=== PATIENT | female | born 1950 | race Caucasian/White ===

== ENCOUNTER 2016-03-10 07:12 | Inpatient (IN) | payer OTHER, MEDICAID ==
[2016-03-10] VITALS (26 sets, daily range): BP systolic 88–142; BP diastolic 48–96; PULSE 70–124; RESP 12–22; TEMP 97–98.2; O2SAT 94–100
[~2016-03-10] VITALS: Ht 162.6 cm; Wt 59.0 kg
[~2016-03-10 07:12] MED LIST: CAPT25TA3 PO; DEXT1CAP3 PO; LEVO88TA5 PO; PLE5 PO; TIZA4TAB11 PO; TRAM50TA92 PO; [UNRECOGNIZED DRUG - CODE] PO
--- NOTE | 2016-03-10 07:12 | NUR ---
Patient to ER bed 2 to gown for evaluation. Side rails up. Report given to TREVER SINGH.
--- NOTE | 2016-03-10 07:12 | NUR ---
Placed in room 1 . Placed on cardiac rehab nurse, blood pressure machine and pulse oximeter. To gown for exam. Side rails up.
--- NOTE | 2016-03-10 07:15 | NUR ---
ER at bedside examining patient.
[2016-03-10] MEDS ORDERED: NACL 0.9% 1,000 ML IV ONE ×3 (07:18→08:45)
--- NOTE | 2016-03-10 07:22 | NUR ---
ER at bedside examining patient.
--- NOTE | 2016-03-10 07:43 | NUR ---
# 20 gauge angiocath placed to LEFT HAND. Use of asceptic technique. Opsite placed over site. Blood return noted. Blood for lab drawn from site. Flushed with 10 cc of normal saline. No evidence of infiltration noted. Patient tolerated well.
--- NOTE | 2016-03-10 07:44 | NUR ---
# 16 FR Shen catheter with use of sterile technique. Immediate return of cc urine noted. Bedside drainage bag placed below level of bladder. Urine sample collected and sent to lab. Pt tolerated procedure . Patient arrived with shen in place, changed due to standard of practice prior to admission. Patient unable to toilet self.
[2016-03-10] MEDS ORDERED: LEVOFLOXACIN 500 MG/D5W 100 ML IV ONE (07:45)
[2016-03-10 08:36] LABS: BASOPHILS % (AUTO) 0.1 % (0.0-2.0); EOSINOPHILS % (AUTO) 0.2 % (0.0-4.0); HEMATOCRIT 29.5 % (36-48); HEMOGLOBIN 9.9 g/dL (12.0-16.0); LYMPHOCYTES # (AUTO) 0.4 K/uL (1.0-5.5); LYMPHOCYTES % (AUTO) 2.8 % (20.5-51.5); MEAN CORPUSCULAR HEMOGLOBIN 30 pg (27-31); MEAN CORPUSCULAR HGB CONC 33 % (32-36); MEAN CORPUSCULAR VOLUME 91 fL (79.0-98.0); MONOCYTES # (AUTO) 0.5 K/uL (0.0-1.0); MONOCYTES % (AUTO) 3.9 % (1.7-9.3); PLATELET COUNT (AUTO) 357 K/uL (130-430); RED BLOOD CELL COUNT(AUTO) 3.24 MIL/uL (4.2-6.2); RED CELL DISTRIBUTION WIDTH 13.8 % (9.0-15.0); WHITE BLOOD COUNT (AUTO) 13.9 K/uL (4.8-10.8)
[2016-03-10 08:39] LABS: CREATININE 0.58 mg/dL (0.55-1.30); POTASSIUM 3.8 mmol/L (3.5-5.1)
[2016-03-10 08:44] LABS: ALBUMIN 2.6 g/dL (3.4-4.8); TOTAL BILIRUBIN 0.2 mg/dL (0.0-1.0); TOTAL PROTEIN, SERUM 6.5 g/dL (6.4-8.3)
[2016-03-10] MEDS ORDERED: LIPA1CAP23 PO (08:45)
[2016-03-10] MEDS ORDERED: DIPH25TA62 GT (08:45)
[2016-03-10] MEDS ORDERED: ESOM40CA PO (08:45)
[2016-03-10] MEDS ORDERED: FERR220S3 PO (08:45)
[2016-03-10] MEDS ORDERED: TRAM100T13 PO (08:45)
[2016-03-10] MEDS ORDERED: PREG75CA PO (08:45)
[2016-03-10] MEDS ORDERED: POTA20LI25 PO (08:45)
[2016-03-10] MEDS ORDERED: LEVO175T7 PO (08:45)
[2016-03-10] MEDS ORDERED: RILU50TA8 PO (08:45)
[2016-03-10] MEDS ORDERED: LACT1CAP7 PO (08:45)
[2016-03-10] MEDS ORDERED: CYCL-10 PO (08:45)
[2016-03-10] MEDS ORDERED: SIME125C81 PO (08:45)
[2016-03-10] MEDS ORDERED: ALBU2.5V7 INH (08:45)
[2016-03-10] MEDS ORDERED: METO-290 PO (08:45)
[2016-03-10] MEDS ORDERED: BUDE0.253 NEB (08:45)
--- NOTE | 2016-03-10 09:10 | NUR ---
medication reconcil completed.
--- NOTE | 2016-03-10 09:11 | NUR ---
admit order received from Dr Saba
--- NOTE | 2016-03-10 09:11 | NUR ---
MRSA of nares sent to lab
--- NOTE | 2016-03-10 09:12 | NUR ---
Patient will be admitted to care of Jayant. Admitted to unit. Will go to room . Belongings list completed. Summary report printed. Report given to .
--- NOTE | 2016-03-10 09:23 | NUR ---
ADMISSION NOTE Received patient from ER via mani, received report from TREVER SINGH. Patient admitted with diagnosis of SEPSIS. oriented to hospital routine, call light, toileting and safety. verbalized understanding. PT IS NONVERBAL
[2016-03-10 10:12] LABS: BILIRUBIN,URINE NEGATIVE (NEGATIVE); CLARITY/URINE CLOUDY (CLEAR); COLOR,URINE YELLOW (YELLOW); GLUCOSE,URINE NEGATIVE (NEGATIVE); KETONES,URINE NEGATIVE (NEGATIVE); LEUKOCYTE ESTERASE ,URINE 3+ (NEGATIVE); NITRITE, URINE NEGATIVE (NEGATIVE); PROTEIN URINE 1+ (NEGATIVE); UROBILINOGEN,URINE 0.2 (0.2-1.0)
[2016-03-10 10:18] LABS: BLOOD, URINE TRACE (NEGATIVE)
--- NOTE | 2016-03-10 10:25 | NUR ---
LAB VEHICLE LEASING AND RENTAL MANAGER HERE TO DRAW 2ND LACTIC ACID PER SEPSIS PROTOCOL
[2016-03-10 10:46] LABS: BACTERIA,URINE MODERATE /HPF (None Seen); WBC,URINE 50-80 /HPF (0-3)
[2016-03-10 10:47] LABS: TRIPLE PHOSPHATE CRYSTAL,UR 0-10 /HPF (None Seen)
[2016-03-10] MEDS ORDERED: IPRATROPIUM BROM 0.5 MG/2.5 ML VIAL.NEB (ATROVENT) INH PRN (11:15)
[2016-03-10] MEDS ORDERED: ALBUTEROL SULFATE 0.083% 2.5 MG/3 ML VIAL.NEB INH PRN (11:15)
--- NOTE | 2016-03-10 11:25 | NUR ---
HERE RENARD HARTMANN, HERE TO SEE PT. SPOKE WITH . NEW ORDERS NOTED
[2016-03-10] MEDS ORDERED: ONDANSETRON HCL 4 MG/2 ML VIAL IVP PRN (12:00)
[2016-03-10] MEDS ORDERED: ACETAMINOPHEN 325 MG TABLET PO PRN (12:00)
[2016-03-10] MEDS ORDERED: MORPHINE 2 MG/ML INJ. SYRINGE IVP PRN (12:00)
[2016-03-10] MEDS ORDERED: MORPHINE 4 MG/ML INJ. SYRINGE IVP PRN (12:00)
--- NOTE | 2016-03-10 12:00 | NUR ---
HERE DR BARTON, PCP, HERE TO SEE PT. SPOKE WITH . NEW ORDERS NOTED
[2016-03-10 12:01] LABS: ABG TOTAL HEMOGLOBIN 10.7 G/dL (12.0-18.0); BLOOD GAS BASE EXCESS -0.4 mmol/L (-3.0-3.0); BLOOD GAS COHb% 1.2 % (0.5-1.5); BLOOD GAS HHB 2.4 % (0.0-6.0); BLOOD GAS PH 7.413 (7.350-7.450); BLOOD O2Hb% 96.1 % (94.0-97.0)
--- NOTE | 2016-03-10 12:30 | NUR ---
CALLED IN CONSULT TO DR. LADD AND DR. GALLEGOS IS LOG PREPARER... SPOKE TO EXCHANGE...
--- NOTE | 2016-03-10 12:32 | NUR ---
CALLED IN CONSULT TO DR. GRAMAJO AND LEFT VOICEMAIL...
[2016-03-10] MEDS ORDERED: METOCLOPRAMIDE HCL 10 MG TABLET PO ONE (13:15)
[2016-03-10] MEDS: D5NS 1,000 ML IV SCH (14:07)
[2016-03-10] MEDS: IPRATROPIUM BROM 0.5 MG/2.5 ML VIAL.NEB (ATROVENT) INH SCH ×3 (15:00→23:52)
[2016-03-10] MEDS: ALBUTEROL SULFATE 0.083% 2.5 MG/3 ML VIAL.NEB INH SCH ×3 (15:00→23:52)
[2016-03-10] MEDS: metroNIDAZOLE 500 mg/NS 100 ML IV SCH ×2 (15:07→21:09)
[2016-03-10] MEDS ORDERED: ACETAMINOPHEN 325 MG TABLET GT PRN (15:45)
[2016-03-10] MEDS: traMADol HCL HCL 50 MG TABLET (ULTRAM) GT PRN (16:23)
[2016-03-10] MEDS ORDERED: CYCLOBENZAPRINE HCL 10 MG TABLET (FLEXERIL) ONE (16:26)
--- NOTE | 2016-03-10 16:45 | NUR ---
RILUZOLE RILUZOLE IS NON FORMULARY PER KATHYA QUINTERO. MADE AWARE. HE WILL GO HOME TO SEE IF HE HAS ANY AT HOME. [facility] WILL NOT RELEASE
[2016-03-10] MEDS: METOCLOPRAMIDE HCL 10 MG TABLET PO SCH (17:42)
--- NOTE | 2016-03-10 18:46 | NUR ---
CLOSING NOTE PT RESTING IN BED. ALL NEEDS MET. HOURLY AND PRN ROUNDS OBSERVED. WILL ENDORSE REPORT TO NOC SHIFT NURSE
--- NOTE | 2016-03-10 20:00 | NUR ---
PM ASSESSMENT Pt alert and oriented, non-verbal, follows commands with eye movements (blinks for yes or no). Admitted earlier this morning from [facility] with admitting diagnosis of sepsis. Neurogenic bladder and quadraplegic d/t ALS. Bocanegra intact draining yellow urine, replaced in ER upon admission. On vent settings of CPAP 12/5 fio2 32% with Portex size 7. Pt has peripheral iv on right hand gauge 22 on D5NS @100 ml/hr. Air mattress in place, side rails up. Will continue monitor.
[2016-03-10] MEDS: LACTOBACILLUS RHAMNOSUS GG 1 CAP CAPSULE GT SCH (20:53)
[2016-03-10] MEDS: PREGABALIN 75 MG CAPSULE (LYRICA) GT SCH (20:53)
[2016-03-10] MEDS: CYCLOBENZAPRINE HCL 10 MG TABLET (FLEXERIL) GT SCH (20:53)
[2016-03-10] MEDS ORDERED: PREGABALIN 75 MG CAPSULE (LYRICA) PO SCH (21:00)
[2016-03-10] MEDS ORDERED: LACTOBACILLUS RHAMNOSUS GG 1 CAP CAPSULE PO SCH (21:00)
[2016-03-10] MEDS ORDERED: RILUZOLE 50 MG TABLET GT SCH (21:00)
--- NOTE | 2016-03-10 21:45 | NUR ---
AND MALE VISITOR AT BEDSIDE just came back from [facility] and brought Riluzole tablet (medicine for ALS) for his . Our pharmacy doesn't have the same medication, only had one tablet left and states that [facility] can't give him more. Informed Pauly if okay to administer the medication and she states that it's ok to give. also states not to reposition pt bc of her ALS condition causing her bone to be fragile.
--- NOTE | 2016-03-10 23:05 | NUR ---
DR. Elder called Dr. Elder occupational physician and paged for decreasing bp. Awaiting for orders.
--- NOTE | 2016-03-10 23:55 | NUR ---
DR. CHAVEZ CALLED BACK: NO NEW ORDERS PER HEENA, CHARGE NURSE
[2016-03-11] VITALS (30 sets, daily range): BP systolic 90–166; BP diastolic 49–94; PULSE 59–107; RESP 15–28; TEMP 97.9–98.7; O2SAT 91–100
[2016-03-11] MEDS: METOCLOPRAMIDE HCL 10 MG TABLET PO SCH ×4 (00:23→18:39)
[2016-03-11] MEDS: D5NS 1,000 ML IV SCH (02:27)
--- NOTE | 2016-03-11 03:47 | NUR ---
RN ROUNDS Oral care and meds passed earlier without any problem. left to go home 2 hrs ago and was concerned about obtaining pt's Riluzole medication through our own hospital/pharmacy. He states that when pt was last admitted here a couple of years ago, Riluzole was available. He was only able to get 1 tablet from outside pharmacy and [facility] wasn't able to dispense the medication to him. will be returning in the am. Will address it to incoming day shift nurse.
[2016-03-11] MEDS: IPRATROPIUM BROM 0.5 MG/2.5 ML VIAL.NEB (ATROVENT) INH SCH ×6 (03:58→23:18)
[2016-03-11] MEDS: ALBUTEROL SULFATE 0.083% 2.5 MG/3 ML VIAL.NEB INH SCH ×6 (03:59→23:18)
[2016-03-11] MEDS: metroNIDAZOLE 500 mg/NS 100 ML IV SCH ×3 (05:46→21:01)
[2016-03-11 06:25] LABS: BASOPHILS % (AUTO) 0.5 % (0.0-2.0); EOSINOPHILS # (AUTO) 0.2 K/uL (0.0-0.4); EOSINOPHILS % (AUTO) 1.7 % (0.0-4.0); LYMPHOCYTES # (AUTO) 1.2 K/uL (1.0-5.5); LYMPHOCYTES % (AUTO) 13.2 % (20.5-51.5); MEAN CORPUSCULAR HEMOGLOBIN 30 pg (27-31); MEAN CORPUSCULAR HGB CONC 33 % (32-36); MEAN CORPUSCULAR VOLUME 92 fL (79.0-98.0); MONOCYTES # (AUTO) 0.7 K/uL (0.0-1.0); MONOCYTES % (AUTO) 7.5 % (1.7-9.3); NEUTROPHILS # (AUTO) 6.8 K/uL (1.8-7.7); NEUTROPHILS % (AUTO) 77.1 % (40.0-70.0); PLATELET COUNT (AUTO) 331 K/uL (130-430); RED BLOOD CELL COUNT(AUTO) 2.93 MIL/uL (4.2-6.2); RED CELL DISTRIBUTION WIDTH 14.7 % (9.0-15.0); WHITE BLOOD COUNT (AUTO) 8.9 K/uL (4.8-10.8)
[2016-03-11 06:42] LABS: ALBUMIN 2.4 g/dL (3.4-4.8); CALCIUM 8.7 mg/dL (8.4-11.0); CREATININE 0.52 mg/dL (0.55-1.30); TOTAL BILIRUBIN 0.3 mg/dL (0.0-1.0); TOTAL PROTEIN, SERUM 6.1 g/dL (6.4-8.3)
[2016-03-11] MEDS ORDERED: LEVOTHYROXINE SODIUM 0.088 MG TABLET PO SCH (07:00)
[2016-03-11 07:10] LABS: HEMOGLOBIN 8.9 g/dL (12.0-16.0)
[2016-03-11] MEDS: LEVOTHYROXINE SODIUM 0.088 MG TABLET GT SCH (07:26)
--- NOTE | 2016-03-11 07:33 | NUR ---
END OF SHIFT REPORT Report/SBAR given and endorsed all care to FRANCISCO Urrutia
[2016-03-11] MEDS ORDERED: POTASSIUM CHLORIDE 20 MEQ/PKT PACKET PO ONE (08:30)
--- NOTE | 2016-03-11 09:26 | NUR ---
Nutrition Update Vincent Scale 10 noted. Pt admitted for sepsis. Diet: Fibersource HN at 40 ml/hr, Free Water Flush: 100cc i3cdrgs via G-tube BMI: 22.3 kg/m2 RD to follow per nutrition care standards.
[2016-03-11] MEDS: LACTOBACILLUS RHAMNOSUS GG 1 CAP CAPSULE GT SCH ×2 (09:37→21:00)
[2016-03-11] MEDS: PREGABALIN 75 MG CAPSULE (LYRICA) GT SCH ×2 (09:37→21:00)
[2016-03-11] MEDS: LEVOFLOXACIN 500 MG/D5W 100 ML IV SCH (09:41)
[2016-03-11] MEDS: 0.45% NACL 1,000 ML IV SCH (10:33)
[2016-03-11] MEDS: CYCLOBENZAPRINE HCL 10 MG TABLET (FLEXERIL) GT SCH ×3 (10:35→21:00)
--- NOTE | 2016-03-11 12:15 | NUR ---
AT BEDSIDE, REQUESTING RILUZULE MEDICATION FOR ALS. CN AND DIRECTOR AWARE, HOSPITAL DOES NOT HAVE MED. PER , HE WILL TRY TO FIND AT DRUG STORE.
--- NOTE | 2016-03-11 13:36 | NUR ---
WITH MEDICATION, DR BARTON PAGED TO GIVE ORDER TO GIVE HERE IN HOSPITAL. CN AWARE.
--- NOTE | 2016-03-11 15:06 | NUR ---
DR BARTON PAGED AGAIN FOR MEDICATION ORDER.
--- NOTE | 2016-03-11 15:57 | NUR ---
Nutrition F/U RD was notified by manufacturing clerk regarding TF consult per charge nurse. RD met w/ pt and pt's at bedside. He confirmed pt's allergies to soy, legumes, and peanuts, and states that she has had a bit of lactose intolerance. Per primary nurse, pt may also be allergic to tubing as well. Per RD chart review, pt is from [facility] and had been on Replete TF formula at 60 ml/hr x20 hours to provide 1200 ML/1200 kcal/day ([id number]); water flush of 100 ml of water every hour x20 hours to provide 2000 cc/day. RD spoke w/ pharmacy intern regarding ordering Replete specialized formula (soy-free). RD to continue to follow per nutrition care standards. RD to complete full Nutrition Assessment 03/12/16. Addendum: 03/12/16 at [address] RD called pharmacy to inquire about delivery of Replete TF formula. Pablo stated that it hasn't arrived yet. RD to continue to F/U.
--- NOTE | 2016-03-11 17:17 | NUR ---
REPORT GIVEN TO M/S RN, UPDATED ON STATUS, LABS AND VITALS. PT STABLE FOR TRANSFER.
--- NOTE | 2016-03-11 17:40 | NUR ---
Patient transferred to unit in stable condition with and RT at bedside.
--- NOTE | 2016-03-11 18:06 | NUR ---
ID CONSULT Spoke with Stephenie regarding request for consultation with Dr. Abdul ([phone]) for reason: pneumonia aspiration.
--- NOTE | 2016-03-11 18:40 | NUR ---
Routine Scheduled medication given per order. Patient resting in bed with no respiratory distress noted. at bedside. Patient stable.
--- NOTE | 2016-03-11 19:50 | NUR ---
Beginning of shift assessment Pt lying in bed w eyes closed, easily arousable to verbal/tactile stimulation. Nonverbal due to tracheostomy. Unable to make needs known, unable to follow commands. Pt on mechanical ventilator, no s/s of respiratory distress. 20 g to r hand infusing IVF, no s/s of infiltration or infection. Bocanegra catheter draining dark yellow urine to gravity, drainage bag placed below bladder level. Gtube site clean/dry/intact. No residual noted. Tubefeeding has not arrived from dietary yet, will follow up. reports pt is lactose intolerant and allergic to soy, requesting to see ingredients to feeding when it arrives. Call light within reach, bed in low position for safety, will continue to monitor.
[2016-03-11] MEDS: RILUZOLE 50 MG GT SCH (21:01)
--- NOTE | 2016-03-11 21:15 | NUR ---
Tubefeeding Fibersource received from dietary. reading ingredients, which state soy is present. requesting not to give to patient due to her last reaction after receiving feeding w soy in ingredients. Reports last time pt began bleeding and had to receive 5 units of blood. supervisor in circuit testing notified regarding tubefeeding and allergy. She reports Community Development Coordinator and Pharmacist are aware and in the process of ordering pt a tubefeeding pt can tolerate.
[2016-03-12] VITALS (20 sets, daily range): BP systolic 96–142; BP diastolic 64–87; PULSE 57–98; RESP 12–20; TEMP 97.3–99.7; O2SAT 93–100; Ht 162.6 cm; Wt 59.0 kg
[2016-03-12] MEDS: METOCLOPRAMIDE HCL 10 MG TABLET PO SCH ×4 (00:10→17:43)
[2016-03-12] MEDS: 0.45% NACL 1,000 ML IV SCH ×2 (00:13→19:30)
[2016-03-12] MEDS: traMADol HCL HCL 50 MG TABLET (ULTRAM) GT PRN (01:32)
--- NOTE | 2016-03-12 01:34 | NUR ---
Pain Pt having 5/10 pain using FLACC. Pt opens eyes to verbal stimulation. When asked to close eyes if having pain, pt closes eyes appropriately and then reopens. Tramadol administered per MD order. Will continue to monitor.
[2016-03-12] MEDS: IPRATROPIUM BROM 0.5 MG/2.5 ML VIAL.NEB (ATROVENT) INH SCH ×5 (03:00→19:43)
[2016-03-12] MEDS: ALBUTEROL SULFATE 0.083% 2.5 MG/3 ML VIAL.NEB INH SCH ×5 (03:00→19:43)
--- NOTE | 2016-03-12 03:30 | NUR ---
Pt rounds Pt resting in bed w eyes closed. Facial features relaxed. No s/s of pain. Respirations even and unlabored. No acute distress noted at this time. Will continue to monitor.
[2016-03-12] MEDS: metroNIDAZOLE 500 mg/NS 100 ML IV SCH ×3 (05:59→21:38)
[2016-03-12] MEDS: LEVOTHYROXINE SODIUM 0.088 MG TABLET GT SCH (06:00)
--- NOTE | 2016-03-12 06:11 | NUR ---
Closing notes Pt lying in bed comfortably w eyes closed. Easily arouses to verbal stimulation. Pt remains free from s/s of pain, facial features relaxed. Respirations even and unlabored. No distress noted at this time. Pt remain afebrile. Will continue to monitor.
[2016-03-12 06:32] LABS: CREATININE 0.62 mg/dL (0.55-1.30)
[2016-03-12 06:50] LABS: BASOPHILS # (AUTO) 0.1 K/uL (0.0-0.2); BASOPHILS % (AUTO) 1.1 % (0.0-2.0); EOSINOPHILS # (AUTO) 0.4 K/uL (0.0-0.4); EOSINOPHILS % (AUTO) 4.2 % (0.0-4.0); HEMATOCRIT 27.6 % (36-48); HEMOGLOBIN 9.3 g/dL (12.0-16.0); LYMPHOCYTES # (AUTO) 1.8 K/uL (1.0-5.5); LYMPHOCYTES % (AUTO) 20.5 % (20.5-51.5); MEAN CORPUSCULAR HEMOGLOBIN 31 pg (27-31); MEAN CORPUSCULAR HGB CONC 34 % (32-36); MEAN CORPUSCULAR VOLUME 92 fL (79.0-98.0); MONOCYTES # (AUTO) 0.7 K/uL (0.0-1.0); MONOCYTES % (AUTO) 8.2 % (1.7-9.3); NEUTROPHILS # (AUTO) 5.9 K/uL (1.8-7.7); PLATELET COUNT (AUTO) 341 K/uL (130-430); RED CELL DISTRIBUTION WIDTH 14.4 % (9.0-15.0); WHITE BLOOD COUNT (AUTO) 8.9 K/uL (4.8-10.8)
--- NOTE | 2016-03-12 08:10 | NUR ---
AM ROUNDS Patient received, eyes open, non verbal unable to track with eyes at this time. VSS. No indications of pain at this time. Respirations even and unlabored. Trach to vent, settings noted. desk monitor in place, rhythm noted. IV site patent intact and infusing fluids as ordered. GT to abdomen noted, dressing CDI, placement verified no residuals noted. Bocanegra draining to gravity, urine noted. Patient repositioned with pillow support. Plan of care unable to be discussed due to mental status, no family at bedside. Will continue to monitor. Safety and fall precautions in place, side rails upx3, patient on air mattress.
--- NOTE | 2016-03-12 09:00 | NUR ---
Spoke with Dr. Saba, per okay to hold GTF at this time.
--- NOTE | 2016-03-12 09:18 | NUR ---
Nutrition Note -- TF F/U FRANDY called pharmacy to inquire about delivery of Replete TF formula. Pablo stated that it hasn't arrived yet. RD to continue to F/U. Addendum: 03/12/16 at [address] FNS department received Replete TF formula (250 ml/8 oz cartons) from pharmacy. FRANDY called Dr. Saba's office and spoke w/ commercial energy raterMonique at 1250. Awaiting call back for new TF orders.
[2016-03-12] MEDS: CYCLOBENZAPRINE HCL 10 MG TABLET (FLEXERIL) GT SCH ×3 (09:22→21:36)
[2016-03-12] MEDS: PREGABALIN 75 MG CAPSULE (LYRICA) GT SCH ×2 (09:22→21:36)
[2016-03-12] MEDS: LACTOBACILLUS RHAMNOSUS GG 1 CAP CAPSULE GT SCH ×2 (09:22→21:38)
[2016-03-12] MEDS: RILUZOLE 50 MG GT SCH ×2 (09:22→21:37)
[2016-03-12] MEDS: LEVOFLOXACIN 500 MG/D5W 100 ML IV SCH (09:22)
--- NOTE | 2016-03-12 10:00 | NUR ---
ROUNDS Patient repositioned with pillow support, oral care and suctioning provided. IVF infusing as ordered. No further needs at this time. No indications of pain or SOB. Safety and fall precautions in place, will continue to monitor.
[2016-03-12] MEDS ORDERED: POTASSIUM CHLORIDE 40 MEQ in NS 250 ML IV SCH (10:45)
--- NOTE | 2016-03-12 12:34 | NUR ---
ROUNDS Spoke with patients family, per family patient not be turned. Educated family on importance of turning and although he "understood" stated patient would be in "too much pain" if moved due to disease process. No acute distress noted from patient at this time. Will continue to monitor.
--- NOTE | 2016-03-12 14:00 | NUR ---
ROUNDS Late entry due to patient care. Patient resting, no acute distress noted. IVF infusing as ordered. GTF initiated per MD orders. Will continue to monitor. Safety and fall precautions in place, call light within reach.
--- NOTE | 2016-03-12 16:00 | NUR ---
ROUNDS Late entry due to patient care. Patient resting. GTF infusing as ordered. IVF infusing as ordered. Spouse at bedside. No further needs. Will continue to monitor.
--- NOTE | 2016-03-12 18:40 | NUR ---
CLOSING NOTE Patient repositioned with pillow support with at bedside. Mucus to perineal area noted. Patient cleaned. Oral suctioning provided. GT dressing CDI. GTF infusing well. IVF infusing as ordered. Heels elevated with pillow support. No further needs at this time. All needs met throughout shift, will endorse to next shift. Safety and fall precautions in place.
--- NOTE | 2016-03-12 19:15 | NUR ---
change of shift.pt.presents flat affect;2/t als hx per day shift:pt's data/info.ventilator present,g-tube feed.hermelinda dougherty 2 f/u w/assessment. Addendum: 03/13/16 at 0326 by Gasper Jacobs RN tierra agarwal,bedside.
--- NOTE | 2016-03-12 20:00 | NUR ---
pt.assessed.v/s assessed.vent settings reviewed correspond 2 recent orders.v/s assessed:values w/in normal levels. if fluids infusing.g-tube @50ML:tolerating feed.call light w/in pt's reach. Addendum: 03/13/16 at 0329 by Gasper Jacobs RN pt.repositioned.
--- NOTE | 2016-03-12 21:00 | NUR ---
2100p medications administered via g-tube;g-tube flushing;no resisitance.call light w/i pt's reach.
--- NOTE | 2016-03-12 22:00 | NUR ---
pt.assessed.pt.repositioned.g-tube,shen,iv fluids, vent settings areviewed assessed.call light w/i pt's reach.
[2016-03-13] VITALS (18 sets, daily range): BP systolic 103–133; BP diastolic 64–87; PULSE 64–97; RESP 17–20; TEMP 97.8–99.1; O2SAT 95–99
--- NOTE | 2016-03-13 | NUR ---
pt.assessed.reglan,med administered via g-tube.pt.repositioned.vent settings reviewed.call light w/n pt's reach. has left room.
[2016-03-13] MEDS: METOCLOPRAMIDE HCL 10 MG TABLET PO SCH ×4 (00:43→17:55)
--- NOTE | 2016-03-13 02:00 | NUR ---
pt.assessed.pt.repositioned.g-tube,iv fluids,shen cath,assessedd.vent settings reviewed.call light w/in pt's reach.
--- NOTE | 2016-03-13 04:00 | NUR ---
pt.assessed.pt.repositioned.vent,g-tube,iv fluids,shen cath assessed.pt.tolerating vent settings.call light placed w/in pt's reach.
[2016-03-13] MEDS: 0.45% NACL 1,000 ML IV SCH (04:27)
--- NOTE | 2016-03-13 05:00 | NUR ---
pt.cleaned.mucous elimination assessed:scant amount no blood.2 f/u re:elimination.call ligth w/in pt's reach.iv fluids bag changed.
[2016-03-13] MEDS: metroNIDAZOLE 500 mg/NS 100 ML IV SCH ×3 (06:16→21:18)
[2016-03-13] MEDS: LEVOTHYROXINE SODIUM 0.088 MG TABLET GT SCH (06:16)
--- NOTE | 2016-03-13 06:34 | NUR ---
pt.repositioned.pt.suctioned.am medications administered via g-tube.call light w/in pt's reach.
[2016-03-13 07:01] LABS: CALCIUM 8.9 mg/dL (8.4-11.0); CREATININE 0.63 mg/dL (0.55-1.30); POTASSIUM 3.3 mmol/L (3.5-5.1)
--- NOTE | 2016-03-13 08:30 | NUR ---
AM ROUNDS Late entry due to patient care. Patient received, eyes open non verbal unable to track with eyes at this time. VSS. Respirations even and unlabored. Trach to vent, settings noted. Oral care and oral suctioning provided. box nailer in place, rhythm noted. IV site patent intact and infusing fluids as ordered. GT dressing CDI, GTF infusing as ordered, placement verified and no residuals noted. Bowel sounds active within all four quadrants. Bocanegra draining to gravity, urine output noted. Plan of care unable to be discussed due to mental status, no family at bedside. Patient on air mattress, side rails upx3. Will continue to monitor.
[2016-03-13] MEDS: ALBUTEROL SULFATE 0.083% 2.5 MG/3 ML VIAL.NEB INH SCH ×5 (08:37→23:48)
[2016-03-13] MEDS: IPRATROPIUM BROM 0.5 MG/2.5 ML VIAL.NEB (ATROVENT) INH SCH ×5 (08:37→23:48)
[2016-03-13] MEDS: LACTOBACILLUS RHAMNOSUS GG 1 CAP CAPSULE GT SCH ×2 (09:15→21:17)
[2016-03-13] MEDS: CYCLOBENZAPRINE HCL 10 MG TABLET (FLEXERIL) GT SCH ×3 (09:16→21:18)
[2016-03-13] MEDS: LEVOFLOXACIN 500 MG/D5W 100 ML IV SCH (09:16)
[2016-03-13] MEDS: PREGABALIN 75 MG CAPSULE (LYRICA) GT SCH ×2 (09:16→21:17)
[2016-03-13] MEDS: RILUZOLE 50 MG GT SCH ×2 (09:17→21:19)
--- NOTE | 2016-03-13 10:32 | NUR ---
CRITICAL/MD Critical lab value received, ESBL urine. Dr. Franko henry.
--- NOTE | 2016-03-13 10:33 | NUR ---
ROUNDS Patient sleeping at this time. Chest rise noted. Respirations even and unlabored. IVF and GTF infusing as ordered. Will continue to monitor. Safety and fall precautions in place, call light within reach.
--- NOTE | 2016-03-13 12:07 | NUR ---
ROUNDS Patient resting comfortable, repositioned with pillow support. IVF infusing as ordered. GTF infusing as ordered. Will continue to monitor.
--- NOTE | 2016-03-13 14:34 | NUR ---
ROUNDS Patient repositioned with pillow support. GTF infusing as ordered, no residulas noted. Oral care and suctioning provided, white thick secretions noted. No further needs at this time. Safety and fall precautions in place, call light within reach. Will continue to monitor.
[2016-03-13] MEDS ORDERED: SULFAMETHOXAZOLE/TRIMETHOPR DS 1 TABLET GT ONE (14:45)
--- NOTE | 2016-03-13 18:39 | NUR ---
CLOSING NOTE Patient repositioned with pillow support. Oral care and suctioning provided. Respirations even and unlabored. IVF infusing as ordered. GTF tolerated well, dressing CDI. Bocanegra draining to gravity. All needs met throughout shift, will endorse to next shift.
--- NOTE | 2016-03-13 19:08 | NUR ---
INITIAL ROUND RECVD PT IN BED,AWAKE/ALERT,NON VERBAL,PT ON MECH VENT.V/S 133/87,98.6,89M,18,99%.NOTED IV TO R HAND G 20,NO INFILTRATE WITH GOOD BLOOD RETURN.G TUBE NOTED WITH REPLETE RUNNING @ 50CC/HR,O RESIDUAL NOTED.VIEIRA CATH NOTED WITH CLEAR YELLOW URINE AMOUNTING TO 200CC.CALL LIGHT WITHIN REACH.WILL CONT TO MONITOR. @ BEDSIDE.
--- NOTE | 2016-03-13 21:08 | NUR ---
ROUNDS PT IS COMFORTABLY RESTING @ THIS TIME. @ BEDSIDE.WILL CONT TO MONITOR.
[2016-03-13] MEDS: SULFAMETHOXAZOLE/TRIMETHOPR DS 1 TABLET GT SCH (21:18)
--- NOTE | 2016-03-13 23:08 | NUR ---
ROUNDS PT IS SLEEPING COMFORTABLY @ THIS TIME.NO S/S OF PAIN AND NO SOB NOTED.CALL LIGHT WITHIN REACH,WILL CONT TO MONITOR.
[2016-03-14] VITALS (18 sets, daily range): BP systolic 98–147; BP diastolic 53–93; PULSE 75–112; RESP 18–20; TEMP 97.9–99.4; O2SAT 94–99
[2016-03-14] MEDS: METOCLOPRAMIDE HCL 10 MG TABLET PO SCH ×5 (00:36→23:13)
--- NOTE | 2016-03-14 01:08 | NUR ---
ROUNDS PT IS SLEEPING @ THIS TIME BUT EASILY AWAKEN BY VERBAL STIMULI.NO S/S OF PAIN AND NO SOB NOTED.CALL LIGHT WITHIN REACH,WILL CONT TO MONITOR.
--- NOTE | 2016-03-14 03:08 | NUR ---
AM CARE AND REPOSITIONING WAS DONE WITH PT.ORAL CARE RENDERED.WILL CONT OT MONITOR.
--- NOTE | 2016-03-14 05:08 | NUR ---
REPOSITIONED PT WITH AGRONOMY TEACHER.NO S/S OF PAIN AND NO DISTRESS NOTED.WILL CONT TO MONITOR.
--- NOTE | 2016-03-14 05:25 | NUR ---
FINAL NOTES PT IS SLEEPING AT THIS TIME.0 S/S OF DISCOMFORT OR DISTRESS.V/S ARE WNL.ALL NEEDS ARE MET AND ANTICIPATED BY NOC NURSES.SIDE RAILS UPX3 AND BED IN LOW POSITION.CALL LIGHT WITHIN REACH,ENDORSED.
[2016-03-14] MEDS: LEVOTHYROXINE SODIUM 0.088 MG TABLET GT SCH (06:12)
[2016-03-14] MEDS: metroNIDAZOLE 500 mg/NS 100 ML IV SCH ×3 (06:13→21:20)
--- NOTE | 2016-03-14 08:00 | NUR ---
AM ROUNDS Late entry due to patient care. Patient received, non verbal eyes open unable to track at this time. No indications of pain at this time. VSS. Respirations even and unlabored. Trach to vent, settings noted. IV site patent and intact, infusing fluids as ordered. individual pension consultant in place, rhythm noted. GT placement verified, no residuals noted, dressing CDI. GTF infusing as ordered. Bocanegra draining to gravity, clear yellow urine noted. Patient on air mattress. Plan of care unable to be discussed due to patients mental status. Safety, fall, and contact precautions in place. Will continue to monitor.
[2016-03-14] MEDS: IPRATROPIUM BROM 0.5 MG/2.5 ML VIAL.NEB (ATROVENT) INH SCH ×4 (08:10→23:00)
[2016-03-14] MEDS: ALBUTEROL SULFATE 0.083% 2.5 MG/3 ML VIAL.NEB INH SCH ×3 (08:11→20:43)
[2016-03-14] MEDS: LACTOBACILLUS RHAMNOSUS GG 1 CAP CAPSULE GT SCH ×2 (09:12→21:20)
[2016-03-14] MEDS: LEVOFLOXACIN 500 MG/D5W 100 ML IV SCH (09:12)
[2016-03-14] MEDS: CYCLOBENZAPRINE HCL 10 MG TABLET (FLEXERIL) GT SCH ×3 (09:12→21:20)
[2016-03-14] MEDS: PREGABALIN 75 MG CAPSULE (LYRICA) GT SCH ×2 (09:12→21:20)
[2016-03-14] MEDS: RILUZOLE 50 MG GT SCH ×2 (09:13→21:20)
[2016-03-14] MEDS: SULFAMETHOXAZOLE/TRIMETHOPR DS 1 TABLET GT SCH ×2 (09:13→21:20)
--- NOTE | 2016-03-14 10:49 | NUR ---
ROUNDS Patient repositioned per spouses request. No acute distress noted at this time. IVF and GTF infusing as ordered. Will continue to monitor. Safety, fall, and contact precautions in place.
--- NOTE | 2016-03-14 12:24 | NUR ---
ROUNDS Patient resting at this time. Per patient not be turned at this time. Educated on importance of turning and skin care, stated "she is comfortable". IVF and GTF infusing as ordered. Will continue to monitor.
[2016-03-14] MEDS: 0.45% NACL 1,000 ML IV SCH (14:02)
--- NOTE | 2016-03-14 14:12 | NUR ---
ROUNDS Patient repositioned as spouses request. Suctioning provided, minimal secretions noted. No indications of pain at this time. IV ABX infusing as ordered. Will continue to monitor. Safety, fall, and contact precautions in place.
--- NOTE | 2016-03-14 15:47 | NUR ---
CALLED [facility], SPOKE TO NURSING HOME APPLIANCE INSTALLER, LISANDRA, RE: PT TRANSFER TODAY. PER NURSING HOME APPLIANCE INSTALLER, NO ISOLATION BED AVAILABLE TODAY. ZAIRA WILL MAKE ARRANGEMENT FOR TOMORROW'S TRANSFER
--- NOTE | 2016-03-14 15:47 | NUR ---
NO BED AVAILABLE AT [facility] FF-UP BED AVAILABILITY AT [facility], PER [facility] CRITICAL POWER INSTALL TECHNICIAN, THEY DON'T HAVE ISOLATION BED FOR THE PATIENT.
--- NOTE | 2016-03-14 15:50 | NUR ---
ZAIRA FROM [facility] CALLED AND INFORMED THAT THERE IS A ISOLATION ROOM AVAILABLE, ROOM 43. PT WILL TRANSFER TODAY.
--- NOTE | 2016-03-14 16:39 | NUR ---
ROUNDS Patient resting at this time. No acute distress noted. Will continue to monitor.
--- NOTE | 2016-03-14 16:39 | NUR ---
Spoke with Dr. Ramirez regarding isolation and sputum culture results. stated she is to be on contact isolation and he will see the patient tomorrow. Addendum: 03/14/16 at 1855 by Holly Ruose RN Dr. Jayant kwan
[2016-03-14] MEDS: traMADol HCL HCL 50 MG TABLET (ULTRAM) GT PRN (18:52)
--- NOTE | 2016-03-14 18:53 | NUR ---
CLOSING NOTE Patient resting, stated had tears in her wifes and grimacing in pain, medication given as indicated. IVF and GTF infusing as ordered. No acute distress noted. All needs met throughout shift. Safety fall and contact precautions in place, spouse at bedside. Will endorse to next shift.
--- NOTE | 2016-03-14 19:37 | NUR ---
OPENING NOTE Pt. and report received from day shift nurse. Pt. awake, nonverbal, and resting quietly in bed. Respirations are even and unlabored with visible chest rise and fall; no s/s of acute distress. Plan of care and safety measures discussed with pt.'s spouse at bedside. Educated regarding call light use and to call for any needs. Safety measures in place. Will continue to monitor.
--- NOTE | 2016-03-14 21:43 | NUR ---
DUE MEDS/PAIN MEDICATION Due meds administered as ordered. Tylenol administered for mild pain as ordered PRN. See EMAR. Spouse at bedside. Safety measures in place. Encouraged spouse to call for any needs. Tubefeeding infusing as ordered; pt. tolerating well with zero residuals noted. IV antibiotics infusing as ordered. Will continue to monitor.
--- NOTE | 2016-03-14 22:32 | NUR ---
ROUNDS Pt. is awake and resting quietly in bed. No s/s of acute distress. Safety measures in place. Encouraged pt. and family to use call light for any needs but unable to assess pt. response to teaching. Spouse at bedside. Will continue to monitor.
[2016-03-15] VITALS (11 sets, daily range): BP systolic 88–106; BP diastolic 50–71; PULSE 68–94; RESP 16–20; TEMP 97.4–99.2; O2SAT 94–100
--- NOTE | 2016-03-15 00:55 | NUR ---
REPOSITIONING/TUBEFEEDING Pt. repositioned with pillows as support with assistance of LEGAL CLERK. Tubefeeding bag and tubing changed per protocol. Pt. tolerating feeding well with zero residuals noted. Safety measures in place. No s/s of acute distress. Will continue to monitor.
--- NOTE | 2016-03-15 02:02 | NUR ---
REPOSITIONING/ROUNDS Pt. is resting quietly in bed with eyes closed. Repositioned with pillows as support. No s/s of acute distress. Safety measures in place. Will continue to monitor.
[2016-03-15] MEDS: IPRATROPIUM BROM 0.5 MG/2.5 ML VIAL.NEB (ATROVENT) INH SCH ×4 (03:00→15:15)
--- NOTE | 2016-03-15 03:51 | NUR ---
RT AT BEDSIDE/ROUNDS RT at bedside. Pt. is resting quietly in bed with eyes closed. Vent settings as ordered; no s/s of acute distress. Safety measures in place. Will continue to monitor.
--- NOTE | 2016-03-15 04:27 | NUR ---
ORAL CARE/SUCTIONING/REPOSITIONING Oral care done; suctioned thick oral secretions. Repositioned with pillows as support. Pt. tolerated well. No s/s of pain or discomfort noted. Safety measures in place. Will continue to monitor.
[2016-03-15] MEDS: METOCLOPRAMIDE HCL 10 MG TABLET PO SCH ×2 (06:26→11:24)
[2016-03-15] MEDS: metroNIDAZOLE 500 mg/NS 100 ML IV SCH ×2 (06:26→14:15)
[2016-03-15] MEDS: LEVOTHYROXINE SODIUM 0.088 MG TABLET GT SCH (06:26)
--- NOTE | 2016-03-15 07:36 | NUR ---
CLOSING NOTES Pt. resting quietly in bed with eyes closed. All needs met throughout shift. Due meds administered as ordered. No significant changes. No s/s of acute distress. Safety measures in place. Endorsed care to oncoming day shift nurse.
[2016-03-15] MEDS: ALBUTEROL SULFATE 0.083% 2.5 MG/3 ML VIAL.NEB INH SCH ×3 (07:40→15:16)
--- NOTE | 2016-03-15 07:50 | NUR ---
Initial Note Received pt in bed, no s/s of distress or sob noted, pt has no facial grimacing noted for pain, pt in stable condition, pt alert to name only, provided pt with reality orientation, non verbal, opens eyes spontaneously. Bed at lowest position, call light within reach, will continue to monitor pt for any changes, fall, aspiration, and contact precautions in place. pt tolerating g tube feedings as ordered, placement verified, g tube patent, no residual, flushes, dressing clean and dry. Oral care provided to pt. Iv catheter patent, no signs of infection or infiltration noted.
[2016-03-15] MEDS: LEVOFLOXACIN 500 MG/D5W 100 ML IV SCH (08:05)
[2016-03-15] MEDS: LACTOBACILLUS RHAMNOSUS GG 1 CAP CAPSULE GT SCH (08:06)
[2016-03-15] MEDS: SULFAMETHOXAZOLE/TRIMETHOPR DS 1 TABLET GT SCH (08:06)
[2016-03-15] MEDS: CYCLOBENZAPRINE HCL 10 MG TABLET (FLEXERIL) GT SCH ×2 (08:06→14:15)
[2016-03-15] MEDS: PREGABALIN 75 MG CAPSULE (LYRICA) GT SCH (08:06)
[2016-03-15] MEDS: RILUZOLE 50 MG GT SCH (08:07)
--- NOTE | 2016-03-15 10:32 | NUR ---
ROUNDS Pt in bed, no s/s of distress or sob noted, pt has no facial grimacing noted for pain, pt in stable condition, pt resting comfortably, will continue to monitor pt for any changes.
--- NOTE | 2016-03-15 11:20 | NUR ---
Vincent Scale Evaluation: Patient evaluated for a low Vincent score of 10. Patient was awake, alert, oriented x 1, and received in supine in a Hill-ROM bed with a low air-loss mattress. Patient needs assist to turn in bed. Skin is fair (-). Recommend encourage and assist patient with repositioning every two hours with pillow support, and off-load heels and pressure areas with pillows for pressure re-distribution. Perform skin care and monitor skin integrity q shift. Use moisture barrier cream on moisture susceptible areas qid and as needed for soiling. Maintain patient on a low air-loss mattress.
--- NOTE | 2016-03-15 14:50 | NUR ---
Report Report given to Malcolm at [facility], . Made aware that pt has an IV catheter on right hand, 20 gauge, saline lock.
[2016-03-15] MEDS: traMADol HCL HCL 50 MG TABLET (ULTRAM) GT PRN (15:50)
--- NOTE | 2016-03-15 16:35 | NUR ---
PT TRANSFERRED Report given to yanet dixon. Transfer packet with Transfer Orders and Medication Reconciliation form given to EMT with report. Exitcare provided. [facility] ID band removed, replaced with ID band with pt's name and . IV catheter in place and saline lock. All belongings sent with patient. Patient left floor via gurney escorted by EMT in no distress.
[2016-03-31 11:56] VITALS: O2SAT 98
== END 2016-03-15 16:35 | DRG 870 ==
LOC: SED 07:12 → SIC 08:57 → STU 03-11 17:40
PROVIDERS: ADMIT Internal Medicine Hospice and Palliative Medicine; ATTEND Internal Medicine Hospice and Palliative Medicine
PROC: 5A1955Z Respiratory Ventilation, Greater than 96 Consecutive Hours (ICD-10-PCS; principal; 2016-03-10)
DX: A41.9 Sepsis, unspecified organism (principal); R65.21 Severe sepsis with septic shock; J15.6 Pneumonia due to other Gram-negative bacteria; J69.0 Pneumonitis due to inhalation of food and vomit; J95.851 Ventilator associated pneumonia; N39.0 Urinary tract infection, site not specified; G12.21 Amyotrophic lateral sclerosis; J96.10 Chronic respiratory failure, unspecified whether with hypoxia or hypercapnia; Z99.11 Dependence on respirator [ventilator] status; K76.9 Liver disease, unspecified; K59.09 Other constipation; D64.9 Anemia, unspecified; E03.9 Hypothyroidism, unspecified; I10 Essential (primary) hypertension; J44.9 Chronic obstructive pulmonary disease, unspecified; J45.909 Unspecified asthma, uncomplicated; G89.29 Other chronic pain; M79.7 Fibromyalgia; Z74.01 Bed confinement status; Z85.3 Personal history of malignant neoplasm of breast; Z87.891 Personal history of nicotine dependence; Z93.1 Gastrostomy status; Z93.0 Tracheostomy status; Z88.1 Allergy status to other antibiotic agents; Z88.8 Allergy status to other drugs, medicaments and biological substances; Z88.6 Allergy status to analgesic agent; Z88.0 Allergy status to penicillin
CPT/HCPCS: 36415; 36600; 71010; 80048; 80053; 81000-TC; 82803-TC; 83605; 83880; 85025; 87040-TC; 87070-TC; 87081; 87086; 87186-TC; 87205-TC; 87230-TC; 93005; 94002; 94003; 94640; 94760; 96365; 99285; J1956; J3480; J3490; J7030; J7042; J7050; J8597

== ENCOUNTER 2016-12-15 00:42 | Inpatient (IN) | payer OTHER, MEDICAID ==
[~2016-12-15] VITALS: Ht 162.6 cm; Wt 69.9 kg
[2016-12-15] VITALS (29 sets, daily range): BP systolic 77–159
[~2016-12-15 00:42] MED LIST changes: +ALBU2.5V7 INH; +BUDE0.253 NEB; +CYCL-10 PO; +DIPH25TA62 GT; +ESOM40CA PO; +FERR220S3 PO; +LACT1CAP7 PO; +LEVO175T7 PO; +LIPA1CAP23 PO; +METO-290 PO; +POTA20LI25 PO; +PREG75CA PO; +RILU50TA8 PO; +SIME125C81 PO; +TRAM100T13 PO
[2016-12-15 01:13] LABS: BASOPHILS % (AUTO) 0.5 % (0.0-2.0); HEMATOCRIT 26.7 % (36-48); HEMOGLOBIN 8.8 g/dL (12.0-16.0); LYMPHOCYTES # (AUTO) 0.7 K/uL (1.0-5.5); MEAN CORPUSCULAR HEMOGLOBIN 31 pg (27-31); MEAN CORPUSCULAR HGB CONC 33 % (32-36); MEAN CORPUSCULAR VOLUME 93 fL (79.0-98.0); MONOCYTES # (AUTO) 0.4 K/uL (0.0-1.0); NEUTROPHILS % (AUTO) 87.5 % (40.0-70.0); PLATELET COUNT (AUTO) 338 K/uL (130-430); RED BLOOD CELL COUNT(AUTO) 2.88 MIL/uL (4.2-6.2); RED CELL DISTRIBUTION WIDTH 13.9 % (9.0-15.0); WHITE BLOOD COUNT (AUTO) 9.1 K/uL (4.8-10.8)
[2016-12-15] MEDS ORDERED: NACL 0.9% 1,000 ML IV ONE ×3 (01:15→04:00)
[2016-12-15 01:22] LABS: ANION GAP 5 (5-15); CALCIUM 8.5 mg/dL (8.4-11.0); CHLORIDE 109 mmol/L (98-107); CREATININE 0.69 mg/dL (0.55-1.30); GLUCOSE 217 mg/dL (70-99); POTASSIUM 4.4 mmol/L (3.5-5.1); SODIUM SERUM 138 mmol/L (136-145); UREA NITROGEN, BLOOD 58 mg/dL (8-21)
[2016-12-15 01:23] LABS: GFR AFRICAN AMERICAN 110 mL/min (>90)
[2016-12-15 01:27] LABS: ALANINE AMINOTRANSFERASE 25 U/L (12-78); ALBUMIN 2.2 g/dL (3.4-4.8); ASPARTATE AMINOTRANSFERASE 16 U/L (10-37); TOTAL BILIRUBIN 0.3 mg/dL (0.0-1.0)
[2016-12-15 01:28] LABS: ALCOHOL, BLOOD < 3 mg/dL (<10)
[2016-12-15] MEDS ORDERED: DULR10 RC (01:40)
[2016-12-15] MEDS ORDERED: NA P118E RC (01:40)
[2016-12-15] MEDS ORDERED: TYLL650 PO (01:40)
[2016-12-15] MEDS ORDERED: MAGN400O4 GT (01:40)
[2016-12-15] MEDS ORDERED: MULT-1117 GT (01:40)
[2016-12-15] MEDS ORDERED: SODI1TAB3 GT (01:40)
[2016-12-15] MEDS ORDERED: IPRA0.2S6 INH (01:40)
[2016-12-15] MEDS ORDERED: ASCO500S2 GT (01:40)
[2016-12-15 01:59] LABS: BILIRUBIN,URINE NEGATIVE (NEGATIVE); BLOOD, URINE 1+ (NEGATIVE); CLARITY/URINE SL CLOUDY (CLEAR); COLOR,URINE YELLOW (YELLOW); GLUCOSE,URINE NEGATIVE (NEGATIVE); KETONES,URINE NEGATIVE (NEGATIVE); LEUKOCYTE ESTERASE ,URINE 3+ (NEGATIVE); NITRITE, URINE NEGATIVE (NEGATIVE); PROTEIN URINE NEGATIVE (NEGATIVE); UROBILINOGEN,URINE 0.2 (0.2-1.0)
[2016-12-15 02:03] LABS: BACTERIA,URINE MANY /HPF (None Seen); URINE AMORPHOUS PHOSPHATES 1+ /HPF (None Seen); WBC,URINE 20-50 /HPF (0-3)
[2016-12-15 02:07] LABS: BARBITURATE, URINE NEGATIVE (NEG <=200); BENZODIAZEPINE, URINE NEGATIVE (NEG <=150); CANNABINOID, URINE NEGATIVE (NEG <=50); COCAINE, URINE NEGATIVE (NEG <=150); METHAMPHETAMINES SCREEN,URINE NEGATIVE (NEG <=500); OPIATE, URINE NEGATIVE (NEG <=100); PHENCYCLIDINE SCREEN,URINE NEGATIVE (NEG <=25); UR TRICYCLIC ANTIDEPRESSANTS NEGATIVE (NEG <=300); URINE AMPHETAMINE NEGATIVE (NEG <=500); URINE METHADONE NEGATIVE (NEG <=200); URINE OXYCODONE SCREEN NEGATIVE (NEG <=100); URINE PROPOXYPHENE SCREEN NEGATIVE (NEG <=300)
[2016-12-15] MEDS ORDERED: NACL 0.9% 1,000 ML IV SCH (03:30)
[2016-12-15] MEDS ORDERED: IPRATROPIUM BROM 0.5 MG/2.5 ML VIAL.NEB (ATROVENT) INH PRN (09:45)
[2016-12-15] MEDS ORDERED: ALBUTEROL SULFATE 0.083% 2.5 MG/3 ML VIAL.NEB INH PRN (09:45)
[2016-12-15] MEDS: D5NS 1,000 ML IV SCH ×2 (12:43→21:20)
[2016-12-15] MEDS: IPRATROPIUM BROM 0.5 MG/2.5 ML VIAL.NEB (ATROVENT) INH SCH ×2 (13:29→19:50)
[2016-12-15] MEDS: ALBUTEROL SULFATE 0.083% 2.5 MG/3 ML VIAL.NEB INH SCH ×2 (13:29→19:49)
[2016-12-15] MEDS ORDERED: CEFEPIME 1 GM in D5W 50 ML IV SCH (15:30)
[2016-12-15] MEDS ORDERED: WATER FOR IRRIGATION,STERILE 1,000 ML IRRIG.SOLN IR ONE (15:35)
[2016-12-15] MEDS ORDERED: SEVOFLURANE 15 MIN GAS INH ONE (15:35)
[2016-12-15] MEDS ORDERED: KETOROLAC TROMETHAMINE 30 MG VIAL IVP ONE (15:35)
[2016-12-15] MEDS ORDERED: PROPOFOL 200MG/ 20ML VIAL (DIPRIVAN) IV ONE (15:35)
[2016-12-15] MEDS ORDERED: fentaNYL CITRATE/PF 100 MCG/2 ML AMP IVP ONE (15:35)
[2016-12-15] MEDS ORDERED: MIDAZOLAM HCL 5 MG/ML VIAL (VERSED) IV ONE (15:35)
[2016-12-15] MEDS ORDERED: ONDANSETRON HCL 4 MG/2 ML VIAL IVP ONE (15:35)
[2016-12-15] MEDS ORDERED: DEXAMETHASONE SOD PHOSPHATE 4 MG/ML VIAL IVP ONE (15:35)
[2016-12-15] MEDS ORDERED: NS 1000 ML BAG IV ONE (15:35)
[2016-12-15] MEDS ORDERED: LR 1,000 ML IV SCH (17:48)
[2016-12-15] MEDS ORDERED: MEPERIDINE HCL/PF 25 MG/ML DISP.SYRIN IVP PRN (18:00)
[2016-12-15] MEDS ORDERED: HYDROmorphone 2 MG/ML VIAL IVP PRN ×2 (18:00)
[2016-12-15] MEDS ORDERED: HYDROmorphone 1 MG INJ. 1 MG/ML AMPUL IVP PRN (18:00)
[2016-12-15] MEDS ORDERED: IOHEXOL 50 ML IV ONE (18:25)
[2016-12-15] MEDS ORDERED: LEVOFLOXACIN 500 MG/D5W 100 ML IV SCH (21:00)
[2016-12-16] VITALS (17 sets, daily range): BP systolic 90–166
[2016-12-16] MEDS: ALBUTEROL SULFATE 0.083% 2.5 MG/3 ML VIAL.NEB INH SCH ×4 (01:19→20:07)
[2016-12-16] MEDS: IPRATROPIUM BROM 0.5 MG/2.5 ML VIAL.NEB (ATROVENT) INH SCH ×4 (01:19→20:07)
[2016-12-16] MEDS ORDERED: CYCLOBENZAPRINE HCL 10 MG TABLET (FLEXERIL) PO ONE (01:30)
[2016-12-16] MEDS ORDERED: traMADol HCL HCL 50 MG TABLET (ULTRAM) PO ONE (01:30)
[2016-12-16] MEDS ORDERED: PREGABALIN 75 MG CAPSULE (LYRICA) PO ONE (01:30)
[2016-12-16] MEDS: CEFEPIME 1 GM in D5W 50 ML IV SCH ×2 (05:44→17:02)
[2016-12-16] MEDS: traMADol HCL HCL 50 MG TABLET (ULTRAM) PO SCH ×3 (08:07→21:06)
[2016-12-16] MEDS: PANTOPRAZOLE SODIUM 40 MG/VIAL (PROTONIX) IVP SCH (08:07)
[2016-12-16] MEDS: PREGABALIN 75 MG CAPSULE (LYRICA) PO SCH ×2 (08:07→21:06)
[2016-12-16] MEDS: CYCLOBENZAPRINE HCL 10 MG TABLET (FLEXERIL) PO SCH ×3 (08:07→21:06)
[2016-12-16] MEDS: 0.45% NACL 1,000 ML IV SCH (10:18)
[2016-12-16] MEDS: VANCOMYCIN HCL 1,250 MG in NS 250 ML IV SCH (12:31)
[2016-12-17] VITALS (7 sets, daily range): BP systolic 91–144
[2016-12-17] MEDS: IPRATROPIUM BROM 0.5 MG/2.5 ML VIAL.NEB (ATROVENT) INH SCH ×4 (01:43→21:24)
[2016-12-17] MEDS: ALBUTEROL SULFATE 0.083% 2.5 MG/3 ML VIAL.NEB INH SCH ×4 (01:43→21:23)
[2016-12-17] MEDS: CEFEPIME 1 GM in D5W 50 ML IV SCH ×2 (04:49→16:59)
[2016-12-17] MEDS: 0.45% NACL 1,000 ML IV SCH ×2 (06:05→21:25)
[2016-12-17 06:29] LABS: BASOPHILS # (AUTO) 0.1 K/uL (0.0-0.2); BASOPHILS % (AUTO) 0.5 % (0.0-2.0); EOSINOPHILS # (AUTO) 1.2 K/uL (0.0-0.4); EOSINOPHILS % (AUTO) 9.5 % (0.0-4.0); HEMATOCRIT 25.8 % (36-48); HEMOGLOBIN 8.6 g/dL (12.0-16.0); LYMPHOCYTES % (AUTO) 15.9 % (20.5-51.5); MEAN CORPUSCULAR HEMOGLOBIN 31 pg (27-31); MEAN CORPUSCULAR HGB CONC 33 % (32-36); MEAN CORPUSCULAR VOLUME 93 fL (79.0-98.0); MONOCYTES # (AUTO) 0.7 K/uL (0.0-1.0); MONOCYTES % (AUTO) 5.9 % (1.7-9.3); NEUTROPHILS # (AUTO) 8.4 K/uL (1.8-7.7); NEUTROPHILS % (AUTO) 68.2 % (40.0-70.0); PLATELET COUNT (AUTO) 321 K/uL (130-430); RED BLOOD CELL COUNT(AUTO) 2.77 MIL/uL (4.2-6.2); RED CELL DISTRIBUTION WIDTH 14.2 % (9.0-15.0); WHITE BLOOD COUNT (AUTO) 12.4 K/uL (4.8-10.8)
[2016-12-17 06:41] LABS: ALBUMIN 2.3 g/dL (3.4-4.8); CALCIUM 8.2 mg/dL (8.4-11.0); CREATININE 0.65 mg/dL (0.55-1.30); POTASSIUM 3.5 mmol/L (3.5-5.1); TOTAL BILIRUBIN 0.6 mg/dL (0.0-1.0)
[2016-12-17] MEDS: traMADol HCL HCL 50 MG TABLET (ULTRAM) PO SCH ×3 (08:46→14:43)
[2016-12-17] MEDS: CYCLOBENZAPRINE HCL 10 MG TABLET (FLEXERIL) PO SCH ×3 (08:46→21:15)
[2016-12-17] MEDS: PANTOPRAZOLE SODIUM 40 MG/VIAL (PROTONIX) IVP SCH (08:47)
[2016-12-17] MEDS: PREGABALIN 75 MG CAPSULE (LYRICA) PO SCH ×2 (08:47→21:13)
[2016-12-17] MEDS: VANCOMYCIN HCL 1,250 MG in NS 250 ML IV SCH (12:39)
[2016-12-18] VITALS (7 sets, daily range): BP systolic 112–134
[2016-12-18] MEDS: ALBUTEROL SULFATE 0.083% 2.5 MG/3 ML VIAL.NEB INH SCH ×4 (01:15→19:45)
[2016-12-18] MEDS: IPRATROPIUM BROM 0.5 MG/2.5 ML VIAL.NEB (ATROVENT) INH SCH ×4 (01:16→19:45)
[2016-12-18] MEDS: CEFEPIME 1 GM in D5W 50 ML IV SCH ×2 (04:57→17:12)
[2016-12-18 06:59] LABS: BASOPHILS % (AUTO) 0.2 % (0.0-2.0); EOSINOPHILS # (AUTO) 1.1 K/uL (0.0-0.4); EOSINOPHILS % (AUTO) 10.5 % (0.0-4.0); HEMATOCRIT 26.9 % (36-48); HEMOGLOBIN 8.9 g/dL (12.0-16.0); LYMPHOCYTES # (AUTO) 1.6 K/uL (1.0-5.5); LYMPHOCYTES % (AUTO) 15.6 % (20.5-51.5); MEAN CORPUSCULAR HEMOGLOBIN 31 pg (27-31); MEAN CORPUSCULAR HGB CONC 33 % (32-36); MEAN CORPUSCULAR VOLUME 93 fL (79.0-98.0); MONOCYTES # (AUTO) 0.6 K/uL (0.0-1.0); MONOCYTES % (AUTO) 5.4 % (1.7-9.3); NEUTROPHILS # (AUTO) 7.1 K/uL (1.8-7.7); NEUTROPHILS % (AUTO) 68.3 % (40.0-70.0); PLATELET COUNT (AUTO) 330 K/uL (130-430); RED CELL DISTRIBUTION WIDTH 14.5 % (9.0-15.0); WHITE BLOOD COUNT (AUTO) 10.4 K/uL (4.8-10.8)
[2016-12-18 07:29] LABS: CALCIUM 8.6 mg/dL (8.4-11.0); CREATININE 0.57 mg/dL (0.55-1.30); POTASSIUM 3.1 mmol/L (3.5-5.1)
[2016-12-18] MEDS ORDERED: POTASSIUM CHLORIDE 20 MEQ/PKT PACKET PO ONE (08:00)
[2016-12-18] MEDS: PREGABALIN 75 MG CAPSULE (LYRICA) PO SCH ×2 (09:12→20:27)
[2016-12-18] MEDS: CYCLOBENZAPRINE HCL 10 MG TABLET (FLEXERIL) PO SCH ×3 (09:12→20:27)
[2016-12-18] MEDS: traMADol HCL HCL 50 MG TABLET (ULTRAM) PO SCH ×3 (09:12→20:27)
[2016-12-18] MEDS: PANTOPRAZOLE SODIUM 40 MG/VIAL (PROTONIX) IVP SCH (09:13)
[2016-12-18] MEDS ORDERED: POTASSIUM CHLORIDE 20 MEQ TAB.PRT.SR PO ONE (11:15)
[2016-12-18] MEDS: VANCOMYCIN HCL 1,250 MG in NS 250 ML IV SCH (13:01)
[2016-12-18] MEDS ORDERED: DIPHENHYDRAMINE HCL 25 MG CAPSULE GT PRN (19:00)
[2016-12-19 00:07] VITALS: BP_SYST 141
[2016-12-19] MEDS: IPRATROPIUM BROM 0.5 MG/2.5 ML VIAL.NEB (ATROVENT) INH SCH ×2 (00:14→11:23)
[2016-12-19] MEDS: ALBUTEROL SULFATE 0.083% 2.5 MG/3 ML VIAL.NEB INH SCH ×2 (00:14→11:23)
[2016-12-19 04:09] VITALS: BP_SYST 122
[2016-12-19] MEDS: 0.45% NACL 1,000 ML IV SCH (04:28)
[2016-12-19] MEDS: CEFEPIME 1 GM in D5W 50 ML IV SCH ×2 (05:07→16:00)
[2016-12-19 08:13] VITALS: BP_SYST 129
[2016-12-19] MEDS: PREGABALIN 75 MG CAPSULE (LYRICA) PO SCH (08:27)
[2016-12-19] MEDS: PANTOPRAZOLE SODIUM 40 MG/VIAL (PROTONIX) IVP SCH (08:27)
[2016-12-19] MEDS: traMADol HCL HCL 50 MG TABLET (ULTRAM) PO SCH ×2 (08:28→15:11)
[2016-12-19] MEDS: CYCLOBENZAPRINE HCL 10 MG TABLET (FLEXERIL) PO SCH ×2 (08:28→15:10)
[2016-12-19] MEDS: VANCOMYCIN HCL 1,250 MG in NS 250 ML IV SCH (12:46)
[2016-12-19 12:48] VITALS: BP_SYST 130
[2016-12-19 14:00] VITALS: BP_SYST 130
[2016-12-19 16:42] VITALS: BP_SYST 114
[2016-12-20] MEDS ORDERED: VANCOMYCIN HCL 1,000 MG in NS 250 ML IV SCH (13:00)
== END 2016-12-19 16:40 | DRG 870 ==
LOC: SED 00:42 → SIC 03:29 → STU 12-16 09:55
PROVIDERS: ADMIT Internal Medicine Hospice and Palliative Medicine; ATTEND Internal Medicine Hospice and Palliative Medicine
PROC: 5A1955Z Respiratory Ventilation, Greater than 96 Consecutive Hours (ICD-10-PCS; 2016-12-15)
PROC: BT141ZZ Fluoroscopy of Kidneys, Ureters and Bladder using Low Osmolar Contrast (ICD-10-PCS; 2016-12-15)
PROC: 0T788DZ Dilation of Bilateral Ureters with Intraluminal Device, Via Natural or Artificial Opening Endoscopic (ICD-10-PCS; principal; 2016-12-15 18:30)
DX: A41.9 Sepsis, unspecified organism (principal); J96.20 Acute and chronic respiratory failure, unspecified whether with hypoxia or hypercapnia; G12.21 Amyotrophic lateral sclerosis; G93.40 Encephalopathy, unspecified; Z99.11 Dependence on respirator [ventilator] status; J15.1 Pneumonia due to Pseudomonas; Z93.0 Tracheostomy status; I95.9 Hypotension, unspecified; N39.0 Urinary tract infection, site not specified; K86.1 Other chronic pancreatitis; N13.2 Hydronephrosis with renal and ureteral calculous obstruction; E88.09 Other disorders of plasma-protein metabolism, not elsewhere classified; D64.9 Anemia, unspecified; E03.9 Hypothyroidism, unspecified; G89.29 Other chronic pain; I10 Essential (primary) hypertension; M79.7 Fibromyalgia; Z74.01 Bed confinement status; Z87.01 Personal history of pneumonia (recurrent); Z87.440 Personal history of urinary (tract) infections; Z88.0 Allergy status to penicillin; Z91.011 Allergy to milk products; Z91.010 Allergy to peanuts; Z79.899 Other long term (current) drug therapy; Z86.73 Personal history of transient ischemic attack (TIA), and cerebral infarction without residual deficits; Z93.1 Gastrostomy status
CPT/HCPCS: 36415; 36600; 70450-TC; 71010; 76000; 80048; 80053; 80202-TC; 80307; 81000-TC; 82550-TC; 82803-TC; 83605; 84484; 85025; 85610-TC; 85730-TC; 87040-TC; 87070-TC; 87081; 87086; 87186-TC; 87205-TC; 93005; 93306; 94002; 94003; 94640; 94760; 96361; 96365; 96366; 99285; C1758; C1769; C2625; C9113; G0481; G0482; J0692; J1100; J1170; J1885; J1956; J2250; J2405; J2704; J3010; J3370; J7030; J7042; J7050; J7060; J7120; Q0163; Q9967